=== PATIENT | female | born 1985 | race Caucasian/White ===

== ENCOUNTER 2020-05-27 08:00 | Outpatient (CLI) | payer OTHER ==
[2020-05-28 17:58] LABS: BACTERIAL VAGINOSIS DNA NEGATIVE (NEGATIVE); CANDIDA GLABRATA DNA NEGATIVE (NEGATIVE); CANDIDA GROUP DNA NEGATIVE (NEGATIVE); CANDIDA KRUSEI DNA NEGATIVE (NEGATIVE); TRICHOMONAS VAGINALIS DNA NEGATIVE (NEGATIVE)
== END 2020-05-27 23:59 | disposition home or self-care (01) ==
LOC: LAB.R 08:00
PROVIDERS: ATTEND Advanced Practice Midwife
DX: N76.0 Acute vaginitis (principal)
CPT/HCPCS: 87661; 87801

== ENCOUNTER 2020-07-19 08:00 | Outpatient (CLI) | payer OTHER ==
[2020-07-19 15:45] LABS: BILIRUBIN,URINE NEGATIVE (NEGATIVE); GLUCOSE, URINE (UA) NEGATIVE (NEGATIVE); KETONES,URINE (UA) NEGATIVE (NEGATIVE); LEUKOCYTE ESTERASE, URINE NEGATIVE (NEGATIVE); NITRITE,URINE NEGATIVE (NEGATIVE); OCCULT BLOOD,URINE NEGATIVE (NEGATIVE); PH,URINE 5.5 PH (5.0-7.5); PROTEIN,URINE NEGATIVE (NEGATIVE); UROBILINOGEN,URINE 0.2 (NORMAL) E.U./dL (NORMAL)
[2020-07-19 15:58] LABS: BACTERIA,URINE Rare /HPF (None Seen); CLARITY,URINE CLEAR (CLEAR); RBC,URINE 0-5 /HPF (0-5); SQUAMOUS EPITHELIAL CELL,UR FEW Squamous (<= Few); WBC,URINE 0-3 /HPF (0-5)
== END 2020-07-19 23:59 | disposition home or self-care (01) ==
LOC: LAB.WC 08:00
PROVIDERS: ATTEND Nurse Practitioner Obstetrics & Gynecology
DX: Z32.01 Encounter for pregnancy test, result positive (principal)
CPT/HCPCS: 81001; 87086

== ENCOUNTER 2020-08-02 16:46 | Outpatient (CLI) | payer OTHER ==
[2020-08-02 18:33] LABS: BASOPHILS % (AUTO) 0.4 %; EOSINOPHILS # (AUTO) 0.2 10^3/uL (0.0-0.7); EOSINOPHILS % (AUTO) 1.5 %; HCT - HEMATOCRIT 44.9 % (37.0-47.0); HGB - HEMOGLOBIN 14.7 g/dL (12.0-16.0); LYMPHOCYTES % (AUTO) 20.1 %; MEAN CORPUSCULAR HEMOGLOBIN 31.4 pg (27.0-31.0); MEAN CORPUSCULAR HGB CONC 32.7 g/dL (32.0-36.0); MEAN CORPUSCULAR VOLUME 95.9 fL (81.0-99.0); MONOCYTES # (AUTO) 0.5 10^3/uL (0.0-1.0); MONOCYTES % (AUTO) 5.1 %; NEUTROPHILS # (AUTO) 7.1 10^3/uL (1.5-6.6); NEUTROPHILS % (AUTO) 72.4 %; PLT - PLATELET COUNT 457 10^3/uL (130-450); RED BLOOD COUNT 4.68 10^6/uL (4.20-5.40); RED CELL DISTRIBUTION WIDTH 13.6 % (12.0-15.0); WHITE BLOOD COUNT 9.8 x10^3/uL (4.8-10.8)
--- NOTE | 2020-08-02 20:00 | Ultrasound Report ---
PROCEDURE: OB First Trimester w/TV INDICATIONS: POSITIVE TEST OUTSIDE/PRIOR DATING DATA: Last menstrual period (LMP): 05/30/2020. LMP-based estimated date of delivery (JIMBO): 03/06/2021. First dating scan (date and location): This study. Estimated date of delivery (JIMBO) from first dating scan: 03/08/2021 TECHNIQUE: Real-time scanning was performed of the fetus and maternal pelvic organs, with image documentation. Endovaginal scanning was also performed to better visualize the fetus and maternal ovaries. COMPARISON: None FINDINGS: There is a small subchorionic hemorrhage that measures 2.3 x 1.5 x 1.0 cm adjacent to the gestational sac inferiorly. Embryo: [place]-rump length of 2.2 cm correlates with an 8 week 6 day gestational age, and delivery da te would be projected to be centered on 03/08/2021. Measurement variability in dating: +/- 4 weeks by LMP, +/- 7 days by mean sac diameter (use before 6 weeks gestation if crown-rump length not able to be measured), +/- 5 days by crown-rump length (6-12 weeks gestation). Maternal organs: Ovaries normal considering gestational status.. IMPRESSION: 8 week 6 day gestational age with delivery date projected to be centered on 03/08/2021, +/- 5 days. Sm all perigestational hemorrhage inferior to the gestational sac, measuring only 2.3 x 1.5 x 1.0 cm. Reviewed by: Alan Yee MD on 08/02/2020 7:59 PM PDT Approved by: Alan Yee MD on 08/02/2020 7:59 PM PDT Station ID: [id number]
[2020-08-03 12:56] LABS: HEPATITIS C ANTIBODY NON-REACTIVE (NON-REACTIVE)
[2020-08-03 12:57] LABS: HEPATITIS B SURFACE ANTIGEN NON-REACTIVE (NON-REACTIVE); HIV AG/AB 4TH GEN NON-REACTIVE (NON-REACTIVE)
== END 2020-08-02 16:47 | disposition home or self-care (01) ==
LOC: DI 16:46 → LAB 16:47
PROVIDERS: ATTEND Nurse Practitioner Obstetrics & Gynecology
DX: Z36.89 Encounter for other specified antenatal screening (principal); O20.8 Other hemorrhage in early pregnancy; Z3A.08 8 weeks gestation of pregnancy
CPT/HCPCS: 36415; 85025; 86592; 86762; 86787; 86803; 86850; 86900; 86901; 87340; 87389

== ENCOUNTER 2020-08-22 08:00 | Outpatient (CLI) | payer OTHER ==
[2020-08-22 16:02] LABS: MUDS CUTOFF CONCENTRATIONS CUTOFF CONC BELOW:
[2020-08-22 16:21] LABS: AMPHETAMINE SCREEN,URINE NEGATIVE (NEGATIVE); COCAINE SCREEN URINE NEGATIVE (NEGATIVE); METHAMPHETAMINES SCREEN, URINE NEGATIVE (NEGATIVE); OPIATE SCREEN, URINE NEGATIVE (NEGATIVE); THC CANNABINOID SCREEN, URINE NEGATIVE (NEGATIVE)
[2020-08-22 16:22] LABS: BARBITURATE SCREEN,UR NEGATIVE (NEGATIVE); BENZODIAZEPINES SCREEN, URINE NEGATIVE (NEGATIVE); METHADONE SCREEN, URINE NEGATIVE (NEGATIVE); OXYCODONE SCREEN, URINE NEGATIVE (NEGATIVE); PROPOXYPHENE SCREEN, URINE NEGATIVE (NEGATIVE); TRICYCLIC ANTIDEPRESSANT,URINE NEGATIVE (NEGATIVE)
[2020-08-22 21:15] LABS: CHLAMYDIA TRACHOMATIS DNA NEGATIVE (NEGATIVE); NEISSERIA GONORRHOEAE DNA NEGATIVE (NEGATIVE); TRICHOMONAS VAGINALIS DNA NEGATIVE (NEGATIVE)
== END 2020-08-22 23:59 | disposition home or self-care (01) ==
LOC: LAB.WC 08:00
PROVIDERS: ATTEND Advanced Practice Midwife
DX: Z34.90 Encounter for supervision of normal pregnancy, unspecified, unspecified trimester (principal)
CPT/HCPCS: 80306; 87491; 87591; 87661

== ENCOUNTER 2020-10-18 18:41 | Outpatient (CLI) | payer OTHER ==
--- NOTE | 2020-10-19 18:13 | Ultrasound Report ---
PROCEDURE: OB Detailed Eval INDICATIONS: SUPERVISION OF NORMAL OUTSIDE/PRIOR DATING DATA: Last menstrual period (LMP): 06/09/2020. LMP-based estimated date of delivery (JIMBO): 03/06/2021. First dating scan (date and location): 08/02/2020. [facility] Estimated date of delivery (JIMBO) from first dating scan: 03/08/2021. The below data below was generated using the first trimester ultrasound JIMBO of 03/08/2021 TECHNIQUE: Real-time scanning was performed of the fetus, with image documentation and biometric measurements. Endovaginal scanning: Not performed COMPARISON: None. FINDINGS: General: A single living intrauterine gestation is present. Presentation: Breech Placenta: Placental position is anterior, without previa. The nearest margin of the placenta is how ever approximately 2 cm away from the internal cervical os Amniotic fluid index: 12.7 cm, normal for gestational age. heart rate: 147 beats per minute. Maternal cervical canal: 3.8 cm long; normal length is 2.5 cm or more. biometrics: Biparietal diameter: 4.4 cm corresponding to a estimated gestational age of 19 weeks 2 days Head circumference: 16.46 cm corresponding to an estimated gestational age of 19 weeks 1 day Abdominal circumference: 14.61 corresponding to an estimated gestational age of 19 weeks 6 days Femur length: 3.25 corresponding to an estimated gestational age of 20 weeks 1 day Composite gestational age from present scan: 19 weeks 3 days Estimated weight and percentile: 320.5 g, 32.5 percentile Measurement variability in biometric dating: +/- 10 days from 12-20 weeks gestation, +/- 2 weeks from 20-30 weeks gestation, +/- 3 weeks at 30 weeks gestation or later. Anatomic survey: Neuro: Ventricles are normal at less than 10 mm. Cisterna magna is normal at 3-11 mm. Cerebellum i s normal in size and morphology. Nuchal skin fold: Normal at less than 6 mm between 14 and 20 weeks gestational age. Face: Nose and lips are unremarkable. Facial profile is not well seen. Spine: No evidence for spina bifida. However, spine is not well-seen in sagittal view. Heart: Not well assessed. Diaphragm: Diaphragm is intact. Stomach: Left-sided stomach is present. Kidneys: Mild bilateral pyelectasis measuring up to 5 mm. Cord: Umbilical cord not well assessed for 3 vessels. Bladder: Normal in size. Extremities: All 4 extremities are visualized. IMPRESSION: 1. Single live intrauterine with estimated weight of 325 g corresponding to approxima tely the 33rd percentile. 2. Mild bilateral pyelectasis. 3. Remainder of sonographic evaluation shows no evidence of anatomical abnormality. However, mu ltiple structures were not well evaluated including the facial profile, sagittal view of the spine, f our-chamber heart view, right ventricular outflow tract, left ventricular outflow tract, and umbilica l cord. Consider repeat evaluation of the structures as warranted. 4. Low-lying placenta. Reviewed by: Db Menon on 10/19/2020 5:12 PM ANGELES Approved by: Db Menon on 10/19/2020 5:12 PM ANGELES Station ID: [id number]
== END 2020-10-18 18:42 | disposition home or self-care (01) ==
LOC: DI 18:41
PROVIDERS: ATTEND Advanced Practice Midwife
DX: O44.42 Low lying placenta NOS or without hemorrhage, second trimester (principal); O35.8XX2 Maternal care for other (suspected) fetal abnormality and damage, fetus 2; Z3A.19 19 weeks gestation of pregnancy

== ENCOUNTER 2020-10-24 18:49 | Outpatient (CLI) | payer OTHER ==
--- NOTE | 2020-10-25 17:13 | Ultrasound Report ---
PROCEDURE: OB F/U or Repeat INDICATIONS: SUPERVISION OF OUTSIDE/PRIOR DATING DATA: Last menstrual period (LMP): 05/30/2020. LMP-based estimated date of delivery (JIMBO): 03/06/2021. First dating scan (date and location): 08/02/2020. Estimated date of delivery (JIMBO) from first dating scan: 03/08/2021. The below data below was generated using the above JIMBO of 03/08/2021 TECHNIQUE: Real-time scanning was performed of the fetus, with image documentation and biometric measurements. Endovaginal scanning: Not needed COMPARISON: All prior OB ultrasounds for this . FINDINGS: General: A single living intrauterine gestation is present. Presentation: Vertex Placenta: Placental position is anterior, without previa. Amniotic fluid index: 13.4 cm, normal for gestational age. heart rate: 140 beats per minute. Maternal cervical canal: 3.2 cm long; normal length is 2.5 cm or more. biometrics: Estimated gestational age from initial scan: 20 weeks 5 days. Other: Completion of anatomic survey allowing excellent visualization of the spine, four-chambe r view of heart and ventricular outflow tracts.. IMPRESSION: Completion of the anatomic survey, no abnormality seen. The delivery date is proje cted to be centered on 03/08/2021. Reviewed by: Alan Yee MD on 10/25/2020 5:12 PM PDT Approved by: Alan Yee MD on 10/25/2020 5:12 PM PDT Station ID: [id number]
== END 2020-10-24 18:50 | disposition home or self-care (01) ==
LOC: DI 18:49
PROVIDERS: ATTEND Advanced Practice Midwife
DX: Z34.92 Encounter for supervision of normal pregnancy, unspecified, second trimester (principal); Z3A.20 20 weeks gestation of pregnancy

== ENCOUNTER 2020-12-12 15:59 | Outpatient (CLI) | payer OTHER ==
[2020-12-12 17:16] LABS: HCT - HEMATOCRIT 36.2 % (37.0-47.0); HGB - HEMOGLOBIN 11.7 g/dL (12.0-16.0); MEAN CORPUSCULAR HEMOGLOBIN 32.5 pg (27.0-31.0); MEAN CORPUSCULAR HGB CONC 32.3 g/dL (32.0-36.0); MEAN CORPUSCULAR VOLUME 100.6 fL (81.0-99.0); MEAN PLATELET VOLUME 9.6 fL (7.9-10.8); RED BLOOD COUNT 3.6 10^6/uL (4.20-5.40); RED CELL DISTRIBUTION WIDTH 13.8 % (12.0-15.0); WHITE BLOOD COUNT 6.8 x10^3/uL (4.8-10.8)
== END 2020-12-12 16:00 | disposition home or self-care (01) ==
LOC: LAB 15:59
PROVIDERS: ATTEND Nurse Practitioner Obstetrics & Gynecology
DX: Z34.90 Encounter for supervision of normal pregnancy, unspecified, unspecified trimester (principal)
CPT/HCPCS: 36415; 82950; 85027

== ENCOUNTER 2021-01-09 07:54 | Outpatient (CLI) | payer OTHER ==
[2021-01-09 08:46] LABS: GTT GLUCOSE,FASTING 98 mg/dL (70-100)
== END 2021-01-09 07:55 | disposition home or self-care (01) ==
LOC: LAB 07:54
PROVIDERS: ATTEND Nurse Practitioner Obstetrics & Gynecology
DX: O99.810 Abnormal glucose complicating pregnancy (principal)
CPT/HCPCS: 36415; 82951; 82952

== ENCOUNTER 2021-02-11 08:00 | Outpatient (CLI) | payer OTHER | END 2021-02-11 23:59 | disposition home or self-care (01) | LOC: LAB.WC 08:00 | PROVIDERS: ATTEND Nurse Practitioner Obstetrics & Gynecology | DX: Z36.85 Encounter for antenatal screening for Streptococcus B (principal) | CPT/HCPCS: 87797 ==

== ENCOUNTER 2021-03-13 07:28 | Inpatient (IN) | payer OTHER ==
[2021-03-13] MEDS ORDERED: SODIUM CHLORIDE FLUSH 0.9% 10 ML SYRINGE IVP PRN (07:42)
[2021-03-13] MEDS ORDERED: miSOPROStoL 200 MCG TABLET BC PRN (07:42)
[2021-03-13] MEDS ORDERED: METHYLERGONOVINE 0.2 MG/ML VIAL IM PRN (07:42)
[2021-03-13] MEDS ORDERED: OXYTOCIN 10 UNIT/ML VIAL IM PRN (07:42)
[2021-03-13] MEDS ORDERED: miSOPROStoL 100 MCG TABLET BC SCH (07:42)
[2021-03-13] MEDS ORDERED: TRANEXAMIC ACID IN NACL 1,000 MG/100 ML BAG IV PRN (07:42)
[2021-03-13] MEDS ORDERED: CARBOPROST TROMETHAMINE 250 MCG/ML AMP IM PRN (07:42)
[2021-03-13] MEDS ORDERED: AMPICILLIN 2 GM in SODIUM CHLORIDE 0.9% MINIBAG 100 ML IV ONE (07:42)
[2021-03-13] MEDS ORDERED: LIDOCAINE-MPF 1% 30 ML VIAL ID PRN (07:42)
[2021-03-13 08:25] LABS: BASOPHILS % (AUTO) 0.6 %; EOSINOPHILS # (AUTO) 0.1 10^3/uL (0.0-0.7); EOSINOPHILS % (AUTO) 1.7 %; HCT - HEMATOCRIT 42.7 % (37.0-47.0); HGB - HEMOGLOBIN 14.3 g/dL (12.0-16.0); LYMPHOCYTES # (AUTO) 1.3 10^3/uL (1.5-3.5); LYMPHOCYTES % (AUTO) 19.5 %; MEAN CORPUSCULAR HEMOGLOBIN 32.6 pg (27.0-31.0); MEAN CORPUSCULAR HGB CONC 33.5 g/dL (32.0-36.0); MEAN CORPUSCULAR VOLUME 97.3 fL (81.0-99.0); MEAN PLATELET VOLUME 10.9 fL (7.9-10.8); MONOCYTES # (AUTO) 0.4 10^3/uL (0.0-1.0); NEUTROPHILS # (AUTO) 4.6 10^3/uL (1.5-6.6); PLT - PLATELET COUNT 234 10^3/uL (130-450); RED BLOOD COUNT 4.39 10^6/uL (4.20-5.40); RED CELL DISTRIBUTION WIDTH 13.7 % (12.0-15.0); WHITE BLOOD COUNT 6.5 x10^3/uL (4.8-10.8)
[2021-03-13] MEDS: LACTATED RINGERS 1,000 ML IV SCH ×2 (08:27→19:13)
[2021-03-13] MEDS ORDERED: SODIUM CHLORIDE FLUSH 0.9% 10 ML SYRINGE IVP SCH (09:00)
[2021-03-13] MEDS: AMPICILLIN 1 GM in SODIUM CHLORIDE 0.9% MINIBAG 100 ML IV SCH ×3 (12:55→21:47)
[2021-03-13] MEDS ORDERED: OXYTOCIN/SODIUM CHLORIDE 500 ML IV SCH (13:00)
--- NOTE | 2021-03-13 13:05 | PROVIDER PROGRESS NOTE ---
Labor Progress Note - Uterine Monitoring Uterine Monitoring Mode: positive: External toco Contraction Frequency (min/apart): 2-4 Contraction Intensity: positive: Moderate Uterine Resting Tone: positive: Soft - Monitoring Monitor Mode: positive: External ultrasound Heart Rate Baseline: 130 Heart Rate Variability: positive: Moderate (6-25 bmp) Accelerations: positive: Present, 15x15 Decelerations: positive: None Strip Review: positive: Category I - Vaginal Exam Dilation (in cm): 4 Effacement (%): 60 Station: -1 Cervical Position: Midposition - Labor Progress Note Labor Progress Note/Additional Text: S: Feeling some vaginal pressure intermittently but overall doing well. Was able to eat some lunch and is feeling well. Coping well with contractions and sitting on exercise ball at the end of the bed. She is hoping to have an unmedicated delivery but is open to an epidural if needed. She desires to use other pain management options prior to placement of epidural. Her Khanh is supportive at the bedside. O: FHR baseline 130s, moderate variability, + accels, no decels Contractions palpate moderate every 2-4 minutes with soft resting tone SVE 4/60/-1, midposition, soft. Vertex. Membranes intact. S/p loading dose of 2g Ampicillin s/p 1 dose of 50mcg BC misoprostol for effective pre-induction cervical ripening A: 35yo @ 41.0wks gestation by LMP c/w 8.6wk U/S Postdates GBS positive Early labor FHR Category I P: Initiate Pitocin for induction of labor with titration per protocol. Continue ampicillin for GBS prophylaxis per protocol. Continuous monitoring Encouraged hydration and nutrition as desired by pt. Encouraged ambulation and frequent position changes. Nitrous oxide PRN. Jacuzzi PRN. Epidural per maternal request. Anticipate .
--- NOTE | 2021-03-13 13:17 | HISTORY & PHYSICAL EXAMINATION ---
Admit History - Visit Reason Visit Reason: Other - : 2 Parity: 1 Premature: 0 Ectopic: 0 : 0 Care: positive: [facility] Risk/History: positive: None Complications This : positive: None Smoking Status: Never smoker - Mother's Labs Mother's Blood Type: positive: A Mother's RH: positive: Positive GBS: positive: Group B Strep Positive Rubella Status: positive: Immune Review of Systems - Constitutional Constitutional: denies: Fatigue, Fever, Chills, Malaise - Eyes Eyes: denies: Blurred vision, Spots in vision, Dipolpia - Cardiovascular Cariovascular: denies: Irregular heart rate, Palpitations, Chest pain, Edema - Respiratory Respiratory: denies: Cough, SOB at rest - Gastrointestinal Gastrointestinal: denies: Abdominal pain, Constipation, Diarrhea, Change in bowel habits, Nausea, Vomiting - Integumentary Integumentary: denies: Rash, Pruritis - Neurological Neurological: denies: Headache Physical - Abdominal Exam Vital Signs: Temp Pulse Resp BP Pulse Ox 36.5 C 113 H 16 133/85 H 03/13/21 07:58 03/13/21 07:58 03/13/21 07:58 03/13/21 07:58 Contraction Frequency (min/apart): 15 Contraction Intensity: positive: Mild Uterine Resting Tone: positive: Soft - Monitoring Heart Rate Baseline: 130 Strip Review: positive: Category I - Presentation Presentation: positive: Vertex - Vaginal Exam Membranes: positive: Membranes intact - Speculum Exam Speculum Exam Performed: positive: No Plan for Labor - Plan For Labor I expect patient to be DC'd or transferred within 96 hours.: Yes Plan for Labor: Harriet presents today for medical induction of labor secondary to postdates . She reports feeling well overall. She has felt a lot of vaginal pressure and following her office visit yesterday she felt like her body was telling her to rest. She denies vaginal bleeding or leakage of fluid. She reports +FM. She denies YIN, visual disturbances, RUQ or epigastric pain and edema. She is accompanied by her Khanh today who is supportive at the bedside. She has been a patient of [facility] for the duration of her which has remained uncomplicated with the exception of an elevated 1 hour GTT however her 3 hour GTT was WNL. She was also noted to have mild pyelectasis with transient hydronephrosis bilaterally at her 20wk FAS but this had resolved on follow up. She is also noted to be GBS positive. She has received adequate and consistent care for the duration of her . She will be admitted to [facility] for medical induction of labor secondary to postdates . Dating criteria: LMP 05/30/2020 Initial U/S @ 8.6wks c/w LMP dating Serial exams - agree OB Hx: G1: 10/10/2018, @ 40.5wks, 8lb6oz Female, epidural, episiotomy G2: Current Medications: PNV Allergies: NKDA PMHx: unremarkable Surgical Hx: Abdominal surgery on small intestine as an Social Hx: Never smoker, no ETOH or IVDA. Khanh is a . Pt is a stay at home mom. Family Hx: CVA - MGF; diabetes- mother, father; weight disorder - mother, father; ulcerative colitis - brother course: LMP 05/30/2020 JIMBO by LMP:03/06/2021 Initial U/S @ 8.6wks c/w LMP dating (JIMBO 03/08/2021) Final JIMBO 03/06/2021 A pos/Rubella imm VZV:imm Genetic testing: declines FAS: Placenta Anterior. KUN wnl. EFW 32.5%. Mild pyelectasis at 5mm bilaterally, associated with transient hydronephrosis. F/U recom 10/24 Completion FAS WNL Glucola : 141. 3HR 98 163,138,127 (WNL) Influenza: 11/19/2020 TDAP:12/11/2020 COVID vaccine: unvaccinated GBS POSITIVE HSV: denies self and partner Breast pump Rx: given12/11/20 MOD: . : Khanh. (4yo Laura- episiotomy); It's a GIRL! "wait and see" approach to pain management - probably epidural pp contraception: pap:05/27/2020 WNL HPV neg Physical Exam: Normocephalic, atraumatic Heart RRR w/o M/G/R Lungs CTAB Abdomen gravid, soft, nontender (scar from previous abdominal surgery noted across abdomen) FHR baseline 130s, moderate variability, + accels, no decels Contractions palpate mild every 10-15 min with soft resting tone SVE deferred initially due to absence of contractions Bilateral LE's no edema Mood is good Assessment: 35yo @ 41.0wks gestation by LMP c/w 8.6wk U/S Postdates GBS positive FHR Category I Plan: Admit for active management 50mcg BC misoprostol for pre-induction cervical ripening. Will perform SVE prior to second dose to determine further plan of care. Initial Ampicillin per protocol for GBS prophylaxis Continuous monitoring Encouraged ambulation and positions changes. Encouraged hydration and nutrition as tolerated orally by pt. Katlyn PRN. Nitrous oxide PRN. Epidural per maternal request. Anticipate .
--- NOTE | 2021-03-13 17:30 | PROVIDER PROGRESS NOTE ---
Labor Progress Note - Uterine Monitoring Uterine Monitoring Mode: positive: External toco Contraction Frequency (min/apart): 2-4 Contraction Intensity: positive: Moderate to strong Uterine Resting Tone: positive: Soft - Monitoring Monitor Mode: positive: External ultrasound Heart Rate Baseline: 165 Heart Rate Variability: positive: Moderate (6-25 bmp) Accelerations: positive: Absent Decelerations: positive: None Strip Review: positive: Category I - Vaginal Exam Dilation (in cm): 4 Effacement (%): 80 Station: -1 Cervical Position: Midposition - Labor Progress Note Labor Progress Note/Additional Text: S: Coping well with contractions and bouncing on the exercise ball at the beds elizabeth. She states initially when the pitocin was started she felt her contractions were more intense than they have been for the past 30-45 minutes. She states overall she is feeling well and denies concerns or complaints at this time. Her remains supportive at the bedside. O: FHR baseline 165, moderate variability, no accels, no decels Contractions palpate moderate to strong every 2-4 minutes with soft resting tone SVE 4/80/-1, midposition, soft. Vertex. AROM at approximately 1700 and was noted to be a moderate amount of meconium stained amniotic fluid Pt is afebrile and has received 3 doses of IV ampicillin for GBS prophylaxis per protocol A: 35yo @ 41.0wks gestation by LMP c/w 8.6wk U/S Postdates Early labor GBS positive FHR Category II - overall reassuring P: Continuous monitoring. Continue pitocin induction of labor with titration per protocol. Continue ampicillin for GBS prophylaxis per protocol. Initiate IV fluid bolus secondary to tachycardia. Sexual Health Physician will be called to present for delivery secondary to meconium stained amniotic fluid. Encouraged ambulation and position changes. Jacuzzi PRN. Nitrous oxide PRN. Anticipate .
--- NOTE | 2021-03-13 23:17 | PROVIDER PROGRESS NOTE ---
Labor Progress Note - Uterine Monitoring Uterine Monitoring Mode: positive: External toco Contraction Frequency (min/apart): 2-3 Contraction Intensity: positive: Strong Uterine Resting Tone: positive: Soft - Monitoring Monitor Mode: positive: External ultrasound Heart Rate Baseline: 135 Heart Rate Variability: positive: Moderate (6-25 bmp) Decelerations: positive: Variable, Intermittent (<50% x20 min) Strip Review: positive: Category II - Vaginal Exam Dilation (in cm): 8 Effacement (%): 100 Station: 0 Cervical Position: Anterior - Labor Progress Note Labor Progress Note/Additional Text: S: Breathing through contractions. Feeling increased vaginal pressure and intensity of contractions. In bed on hands and knees at present time. Considering epidural for pain management however reassured by advanced stage of dilation and desires to try nitrous oxide first as an unmedicated delivery is her part of her plan. Khanh and labor RN supportive at the bedside. O: FHR baseline 130s, moderate variability, no accels, occasional variable decelerations Contractions palpate firm every 2-3 min with soft resting tone SVE 8/100/0, vertex Pitocin @ 2mU/mL A/P: 35yo @ 41.0wks gestation by LMP c/w 8.6wk U/S Active labor-Continue pitocin IOL with titration per protocol Post-dates GBS positive -continue ampicillin for prophylaxis per protocol. Meconium stained amniotic fluid - will notify humanities professor at time of delivery to request presence. FHR Category II - overall reassuring; Continuos monitoring. Nitrous oxide PRN. Epidural per maternal request. Anticipate .
[2021-03-13] MEDS: OXYTOCIN/SODIUM CHLORIDE 500 ML IV PRN (23:59)
[2021-03-14] MEDS: OXYTOCIN/SODIUM CHLORIDE 500 ML IV PRN (00:39)
[2021-03-14] MEDS ORDERED: KETOROLAC 15 MG/ML VIAL IVP SCH (00:40)
[2021-03-14] MEDS ORDERED: KETOROLAC 30 MG/ML VIAL ONE (00:50)
[2021-03-14] MEDS ORDERED: HYDROCORTISONE 1% CREAM 28 GM TUBE PR PRN (00:51)
[2021-03-14] MEDS ORDERED: WITCH HAZEL/GLYCERIN 1 PAD TOP PRN (00:51)
[2021-03-14] MEDS ORDERED: miSOPROStoL 100 MCG TABLET PO SCH (01:00)
--- NOTE | 2021-03-14 01:00 | DELIVERY NOTE ---
Delivery Note - Labor Labor: positive: Augmented by ARM, Induced by oxytocin - Delivery Method Infant Delivery Method: positive: Spontaneous vaginal delivery - Presentation Presentation: positive: Vertex, KALIN - left occiput anterior - Nuchal Cord Nuchal Cord: positive: None - Amniotic Fluid Description Amniotic Fluid Description: positive: Moderate meconium - Episiotomy Type Episiotomy Type: positive: None - Laceration Laceration: positive: 1st degree, Perineal - Suture Suture Type: positive: Vicryl Suture Size: positive: 3-0 - Delivery Outcome Delivery Outcome: positive: Livebirth - [place]: positive: Placed in direct skin contact with mother, Suctioned, Stimulated, Warmed, [place] used, Warmer used [place] sex: positive: Female - Cord Cord: positive: 3 vessels - Placenta Placenta: positive: Intact, Spontaneous - Estimated Blood Loss Estimated Blood Loss (in cc): 200 - Post Delivery Events Post Delivery Events: positive: Shoulder dystocia - Delivery Comments (Free Text/Narrative) Delivery Comments (Free Text/Narrative): This 35yo @ 41.0wks gestation by LMP c/w 8.6wk U/S presented on 03/13/2021 for medical induction of labor secondary to postdates . SVE deferred secondary to absence of notable contractions. She was given 1 dose of 50mcg BC misoprostol for effective pre-induction cervical ripening. SVE 3/60/-1, midposition and vertex. FHR pattern demonstrated Category I pattern with intermittent periods of Category II tracing secondary to tachycardia which resolved with IV fluid bolus and overall FHR pattern remained reassuring throughout the labor course. Pitocin initiated for labor augmentation for a maximum infusion rate of 3mU/mL. AROM occurred at @ approximately 1700 and was noted to be a moderate amount of moderate meconium stained amniotic fluid. Normal labor course. Pt progressed to c/c/+1 @ 2340 with onset of active pushing at 2341. : Normal of viable female on 03/13/2021 @ 2357 in KALIN position following a 1 minutes shoulder dystocia which was relieved by McRobert's maneuver and suprapubic pressure. Secondary to poor tone and respiratory effort, the umbilical cord was doubly clamped and cut by CNM and infant was moved to infant warmer, stimulated, dried, and suctioned with adequate response to initial resuscitative measures. 's were 7/9 at 1 and 5 minutes respectively. Pitocin administered via IV for hemostasis. Fundal massage and gentle cord traction applied for active management of the third stage. Placenta delivered spontaneously and intact at 0000. 3VC. Cord blood was obtained. EBL 200mL. Fourth stage: Uterine fundus is firm and there is no excessive bleeding. The perineum, vagina, and cervix were inspected and noted to have 1st degree perineal laceration which was repaired usin a 3-[address]-1 needle in standard fashion and under sterile conditions. Vaginal examination follow repair was done. Tissues well approximated. initiated. Family bonding well. Both mother and baby were left in stable condition.
[2021-03-14] MEDS ORDERED: METHYLERGONOVINE 0.2 MG/ML VIAL IM ONE (01:01)
[2021-03-14] MEDS ORDERED: METHYLERGONOVINE 0.2 MG/ML VIAL ONE (01:06)
[2021-03-14] MEDS ORDERED: CARBOPROST TROMETHAMINE 250 MCG/ML AMP IM ONE (01:06)
[2021-03-14] MEDS: ACETAMINOPHEN 500 MG TABLET PO SCH ×3 (03:10→18:55)
[2021-03-14] MEDS: IBUPROFEN 600 MG TABLET PO SCH ×3 (07:28→18:55)
--- NOTE | 2021-03-14 11:23 | PROVIDER PROGRESS NOTE ---
Subjective - Subjective Subjective: S: Bonding well with baby. with little difficulty. Baby has a vigorous latch on the left side but has difficulty getting latched on the right. Has been able to hand express on that side an has a great amount of colostrum. She denies pain or discomfort with nursing. Her bleeding is decreased and is light. She denies clotting. Pain well controlled with oral medications and she states she feels so much better now than she did after the delivery of her first baby. Her is supportive at the bedside. O: BP 109/65, RR 18, T 36.5, HR 99 Heart RRR w/o M/G/R, lungs CTAB, abdomen soft and nontender, fundus firm at U-1, perineum intact, repair without edema, light lochia rubra, bilateral LE's no edema. A: 35yo -->P2 PPD#1 s/p TSVD viable female 1st degree perineal laceration -intact Shortly after delivery pt was noted to have increased vaginal bleeding which was resolved with pitocin bolus, cytotec, and methergine IM. Her bleeding has been minimal since that time. P: Continue routine pp care and medications. Work closely with nursing staff with support today. Evaluate for discharge home tomorrow morning. Pt verbalized understanding and agrees to above plan. She denies further questions or concerns at this time. Objective - Vital Signs/Intake & Output Vital Signs: Vital Signs x48h Temp Pulse Resp BP Pulse Ox 03/14/21 08:00 36.5 C 99 18 109/65 99 03/14/21 05:26 36.8 C 89 17 108/59 L 100 Intake & Output: Intake & Output 03/11/21 03/12/21 03/13/21 03/14/21 23:59 23:59 23:59 23:59 Intake Total 2550 2187.917 Output Total 3 1100 Balance 2547 1087.917 - Lab Results Fish Bones: 03/13/21 08:03
[2021-03-15] MEDS: IBUPROFEN 600 MG TABLET PO SCH ×2 (00:43→08:14)
[2021-03-15] MEDS: ACETAMINOPHEN 500 MG TABLET PO SCH (02:59)
[2021-03-15 08:01] VITALS: BP 126/86
--- NOTE | 2021-03-15 10:25 | Labor Flowsheet ---
Labor Flowsheet Datetime Report Generated by CPN: 03/15/2021 10:25 Datetime: 03/15/2021 08:00 VITAL SIGNS NBP Sys/Merry/Mean (mmHg): 126 : 86 : 96 Pulse: 86 Datetime: 03/14/2021 07:35 SpO2 (%): 99 Datetime: 03/14/2021 02:01 Respirations: 18 Datetime: 03/14/2021 01:15 Membranes Ruptured Date/Time: 03/13/2021 17:00 Amniotic Fluid Odor: Normal Datetime: 03/14/2021 00:14 Temperature (C): 36.7 Temperature Route: Oral Datetime: 03/14/2021 00:03 Vital Sign Comments: pt's arm bent and shaking during BP Datetime: 03/14/2021 00:00 Stage of : Recovery Pain Assessment Comments: pt no longer using nitrous Datetime: 03/13/2021 23:57 UTERINE ACTIVITY Monitor Mode: External Frequency (min): 1-2 Quality: Strong Duration (sec): 40-60 Pattern: Normal: <= 5 Contractions in 10 Minutes Resting Tone (Palpate): Relaxed ASSESSMENT A Monitor Mode: Telemetry FHR Baseline Rate : 130 Variability: Moderate 6-25 bpm Accelerations: 15X15 Decelerations: Early; Variable Category: Category II Datetime: 03/13/2021 23:56 Stage 2 Comments: suprapubic from R side by other RN per verbal orders from CNM Datetime: 03/13/2021 23:46 STAGE 2 Pushing Position: Pushing Left Side Datetime: 03/13/2021 23:41 Pushing Progress: Descent with Pushing Datetime: 03/13/2021 23:40 VAGINAL EXAM Dilatation (cm): 10.0 Effacement (%): 100 Station: 1 Exam by: A Merly CNM Datetime: 03/13/2021 23:31 Patient Care Comments: pt considering epidural, requesting SVE by CNM Datetime: 03/13/2021 23:24 Patient Position/Activity: Hands-Knees LaborFlag: Labor Datetime: 03/13/2021 23:02 Teaching Comments: safe nitrous use education provided including do not share, verbalizes understan ding Communication Comments: [employer] P[employer] at bs, pt declining epidural at this time Datetime: 03/13/2021 22:21 I/O Interventions: Up to BR Datetime: 03/13/2021 22:12 Comfort Measures: Back Rub Given; Hot/Cold Pack; Family Support Datetime: 03/13/2021 22:04 Comments: tracing maternal HR, adjusted Datetime: 03/13/2021 21:55 Contraction Comments: abdomen palpates soft, toco referenced Datetime: 03/13/2021 21:53 Monitor Interventions for FHR: Ultrasound Adjusted PAIN Pain Scale: 6 Pain Presence: Intermittent Pain Type: Sharp; Contraction Pain Location: Abdomen Pain Relief Measures: Comfort Measures Pain Coping: Breathing Through Contractions; Declines Medication or Epidural Datetime: 03/13/2021 21:47 Antibiotics: Ampicillin IV 1 Gm Datetime: 03/13/2021 21:21 MEDICATIONS Pitocin (milliunits): Increased to @ 2 Datetime: 03/13/2021 20:58 Hygiene: Karen Care; Complete Bath; Underpad Changed; Peripad Changed; Gown Changed Datetime: 03/13/2021 20:31 Provider Reviewed Strip: Yes Notification Reason: Status; Labor Status; Uterine Activity; Pain Datetime: 03/13/2021 19:46 Vaginal Bleeding: Normal Show Vaginal Exam Comments: pt reports pink tinged mucous to pads when up to BR, denies roni bleeding Datetime: 03/13/2021 19:13 PATIENT CARE IV/Blood Work: New IV Bag Hung; IV Bag Number @ 2 Datetime: 03/13/2021 19:09 MATERNAL ASSESSMENT Level of Consciousness: Alert DTR's/Clonus: DTRs 2+; No Clonus Headache: Denies Breath Sounds, Left: Clear and Equal Breath Sounds, Right: Clear and Equal Nausea/Vomiting: Denies RUQ Epigastric Pain: Denies ANESTHESIA Anesthesia Plans: Uncertain TEACHING Instructional Method: Verbal; Patient Instructed; Family/Support Person Instructed; Verbalized Unde rstanding Plan of Care: Plan of Care Discussed Unit Routine: Call [place]gron; Monitoring; IV Pumps; Safety/Fall Risk Prevention Labor/Induction: Labor Stages; Meconium; Interventions Pain Management: Pain Scale/Goals; Comfort Measures Datetime: 03/13/2021 18:40 COMMUNICATION Communication: Call/Page Placed to Provider Provider Notified (Name): Seg[place] Datetime: 03/13/2021 18:15 Medication Comments: infusion complete Datetime: 03/13/2021 17:15 Actions for Decelerations: IV Bolus Datetime: 03/13/2021 16:59 Membranes Rupture Method: Artificial Amniotic Fluid Color: Light Meconium Amniotic Fluid Amount: Small Cervix, Consistency: Soft Cervix, Position: Anterior Datetime: 03/13/2021 16:45 FHR Baseline Changes: Tachycardia Datetime: 03/13/2021 08:30 Cervical Ripening Agents: Cytotec @
--- NOTE | 2021-03-18 18:00 | Discharge Plan ---
Discharge Plan Problem Reviewed?: Yes Disposition: Home, Self Care Condition: Good Diet: Regular Activity Restrictions: No Restrictions Shower Restrictions: No Driving Restrictions: No Instruction Topics: Vaginal After No Smoking: If you smoke, Please STOP! Call for help. Follow-up with: Akua Moreland CNM, ARNP [Provider Admit Priv/Credential] - 1 Week
== END 2021-03-15 10:00 | disposition home or self-care (01) | DRG 806 ==
LOC: WFO 07:28 → FBP 07:37 → WFO 07:41 → FBP 07:42
PROVIDERS: ADMIT Nurse Practitioner Obstetrics & Gynecology; ATTEND Nurse Practitioner Obstetrics & Gynecology
PROC: 0HQ9XZZ Repair Perineum Skin, External Approach (ICD-10-PCS; principal; 2021-03-13)
PROC: 10E0XZZ Delivery of Products of Conception, External Approach (ICD-10-PCS; 2021-03-13)
PROC: 3E0DXGC Introduction of Other Therapeutic Substance into Mouth and Pharynx, External Approach (ICD-10-PCS; 2021-03-13)
PROC: 10907ZC Drainage of Amniotic Fluid, Therapeutic from Products of Conception, Via Natural or Artificial Opening (ICD-10-PCS; 2021-03-13)
DX: O48.0 Post-term pregnancy (principal); O72.1 Other immediate postpartum hemorrhage; Z37.0 Single live birth; Z3A.41 41 weeks gestation of pregnancy; O77.0 Labor and delivery complicated by meconium in amniotic fluid; O66.0 Obstructed labor due to shoulder dystocia; O70.0 First degree perineal laceration during delivery; O99.824 Streptococcus B carrier state complicating childbirth; O76 Abnormality in fetal heart rate and rhythm complicating labor and delivery
CPT/HCPCS: 36415; 85025; 86850; 86900; 86901; A9270; J2210; J7120